=== PATIENT | female | born 1945 | race Two or more races ===

== ENCOUNTER 2018-09-17 13:56 | Emergency (ER) | payer OTHER ==
[~2018-09-17] VITALS: Ht 152.4 cm; Wt 56.7 kg
[~2018-09-17 13:56] MED LIST: BAYER81 MG; GLIMEPIRIDE4 MG; KEPPRA250 MG; METFORMIN HCL500 MG; ONGLYZA5 MG; PRAVASTATIN SOD40 MG; PRINIVIL10 MG
[2018-09-17] MEDS ORDERED: XARELTO10 MG (14:32)
== END 2018-09-17 19:53 | disposition home or self-care (01) ==
LOC: ER 13:56
DX: M54.12 Radiculopathy, cervical region (principal); M54.16 Radiculopathy, lumbar region